=== PATIENT | female | born 1995 | race Caucasian/White ===

== ENCOUNTER 2018-12-22 06:51 | Emergency (ER) | payer OTHER ==
--- NOTE | 2018-12-22 07:13 | ER Report ---
History and Physical Time Seen By MD: 07:06 Hx. of Stated Complaint: onset nausea vomiting diarrhea yesterday HPI/ROS CHIEF COMPLAINT: Nausea vomiting and diarrhea HISTORY OF PRESENT ILLNESS: Patient is a 23-year-old female who states that she began having nausea vomiting and diarrhea sometime last evening soon after ea ting at [employer] in [facility]. She states she had a hamburger that was medium rare. No one else at the restaurant that she was dining with is ill. She denies any ill contacts. She denies any significant past medical history. She denies history of antibiotic use or recent travel. REVIEW OF SYSTEMS: Constitutional: No fever, no chills. Eyes: No discharge. ENT: No sore throat. Cardiovascular: No chest pain, no palpitations. Respiratory: No cough, no shortness of breath. Gastrointestinal: Crampy abdominal pain, nausea vomiting and watery diarrhea Genitourinary: No hematuria. Musculoskeletal: No back pain. Skin: No rashes. Neurological: No headache. Allergies: Coded Allergies: No Known Drug Allergies (Unverified , 12/22/16) Home Meds Active Scripts Loperamide HCl (Imodium A-D) 2 Mg Capsule, 1 CAP PO Q4H for diarrhea, #12 CAP 0 Refills Prov:KAMERON SIMMONS MD 12/22/18 Ondansetron Hcl (ZOFRAN) 4 Mg Tablet, 4 MG PO Q8H for Nausea, #15 TAB 0 Refills Prov:KAMERON SIMMONS MD 12/22/18 Past Medical/Surgical History No significant PMHx Hx Substance Use Disorder: No Constitutional Vital Sign - Last 24 Hours 12/22/18 06:58 Temp 98.1 Pulse 97 Resp 14 B/P (MAP) 110/80 Pulse Ox 94 O2 Delivery Room Air Physical Exam General Appearance: The patient is alert, has no immediate need for airway protection and no signs of toxicity. Eyes: Pupils equal and round no pallor or injection. ENT, Mouth: Mucous membranes are dry Respiratory: There are no retractions, lungs are clear to auscultation. Cardiovascular: Regular rate and rhythm. Gastrointestinal: Abdomen is soft and non tender, no masses, bowel sounds normal. Neurological: awake and alert Skin: Warm and dry, no rashes. Musculoskeletal: Neck is supple non tender. Extremities are nontender, nonswollen and have full range of motion. Medical Decision Making Data Points Result Diagram: 12/22/18 0734 12/22/18 0734 Laboratory Hematology Test 12/22/18 07:34 Red Blood Count 4.82 M/uL (4.17-5.56) Mean Corpuscular Volume 84.9 fL (80.0-96.0) Mean Corpuscular Hemoglobin 28.5 pg (26.0-33.0) Mean Corpuscular Hemoglobin Concent 33.6 g/dL (32.0-36.0) Red Cell Distribution Width 13.5 % (11.5-14.5) Mean Platelet Volume 7.6 fL (7.2-11.1) Neutrophils (%) (Auto) 44.2 % (39.4-72.5) Lymphocytes (%) (Auto) 43.6 % (17.6-49.6) Monocytes (%) (Auto) 8.0 % (4.1-12.4) Eosinophils (%) (Auto) 3.6 % (0.4-6.7) Basophils (%) (Auto) 0.6 % (0.3-1.4) Nucleated RBC Relative Count (auto) 0.0 /100WBC Neutrophils # (Auto) 3.2 K/uL (2.0-7.4) Lymphocytes # (Auto) 3.2 K/uL (1.3-3.6) Monocytes # (Auto) 0.6 K/uL (0.3-1.0) Eosinophils # (Auto) 0.3 K/uL (0.0-0.5) Basophils # (Auto) 0.0 K/uL (0.0-0.1) Nucleated RBC Absolute Count (auto) 0.00 K/uL Sodium Level 139 mmol/L (137-145) Potassium Level 3.6 mmol/L (3.5-5.0) Chloride Level 105 mmol/L (98-107) Carbon Dioxide Level 25 mmol/L (22-31) Blood Urea Nitrogen 11 mg/dl (7-18) Creatinine 0.60 mg/dl (0.52-1.04) Glomerular Filtration Rate Calc > 60.0 Random Glucose 92 mg/dl (75-110) Calcium Level 9.3 mg/dl (8.4-10.2) Total Bilirubin 0.2 mg/dl (0.2-1.3) Aspartate Amino Transf (AST/SGOT) 28 U/L (0-35) Alanine Aminotransferase (ALT/SGPT) 27 U/L (0-56) Alkaline Phosphatase 59 U/L (0-126) Total Protein 7.5 g/dl (6.3-8.2) Albumin 4.4 g/dl (3.5-5.0) Lipase 51 U/L (23-300) Chemistry Test 12/22/18 07:34 White Blood Count 7.3 k/uL (4.5-11.0) Red Blood Count 4.82 M/uL (4.17-5.56) Hemoglobin 13.7 g/dL (12.0-16.0) Hematocrit 40.9 % (34.0-47.0) Mean Corpuscular Volume 84.9 fL (80.0-96.0) Mean Corpuscular Hemoglobin 28.5 pg (26.0-33.0) Mean Corpuscular Hemoglobin Concent 33.6 g/dL (32.0-36.0) Red Cell Distribution Width 13.5 % (11.5-14.5) Platelet Count 385 K/uL (150-450) Mean Platelet Volume 7.6 fL (7.2-11.1) Neutrophils (%) (Auto) 44.2 % (39.4-72.5) Lymphocytes (%) (Auto) 43.6 % (17.6-49.6) Monocytes (%) (Auto) 8.0 % (4.1-12.4) Eosinophils (%) (Auto) 3.6 % (0.4-6.7) Basophils (%) (Auto) 0.6 % (0.3-1.4) Nucleated RBC Relative Count (auto) 0.0 /100WBC Neutrophils # (Auto) 3.2 K/uL (2.0-7.4) Lymphocytes # (Auto) 3.2 K/uL (1.3-3.6) Monocytes # (Auto) 0.6 K/uL (0.3-1.0) Eosinophils # (Auto) 0.3 K/uL (0.0-0.5) Basophils # (Auto) 0.0 K/uL (0.0-0.1) Nucleated RBC Absolute Count (auto) 0.00 K/uL Glomerular Filtration Rate Calc > 60.0 Calcium Level 9.3 mg/dl (8.4-10.2) Total Bilirubin 0.2 mg/dl (0.2-1.3) Aspartate Amino Transf (AST/SGOT) 28 U/L (0-35) Alanine Aminotransferase (ALT/SGPT) 27 U/L (0-56) Alkaline Phosphatase 59 U/L (0-126) Total Protein 7.5 g/dl (6.3-8.2) Albumin 4.4 g/dl (3.5-5.0) Lipase 51 U/L (23-300) ED Course/Re-evaluation ED Course 12/22/2018 7:13:05 am plan at this time will be IV hydration, CBC CMP lipase urine test and urinalysis. We'll give IV Zofran. 12/22/2018 8:01:52 am patient feeling improved has approximately 400 mL of IV fluids remaining. Blood work is unremarkable; awaiting a urinalysis. Decision to Disposition Date: Dec 22, 2018 Decision to Disposition Time: 08:18 Depart Departure Latest Vital Signs Vital Signs Date Time Temp Pulse Resp B/P (MAP) Pulse Ox O2 Delivery O2 Flow Rate FiO2 12/22/18 06:58 98.1 97 14 110/80 94 Room Air Impression: Primary Impression: Vomiting and diarrhea Condition: Improved Disposition: HOME OR SELF-CARE New Scripts Loperamide HCl (Imodium A-D) 2 Mg Capsule 1 CAP PO Q4H for diarrhea, #12 CAP 0 Refills Prov: KAMERON SIMMONS MD 12/22/18 Ondansetron Hcl (ZOFRAN) 4 Mg Tablet 4 MG PO Q8H for Nausea, #15 TAB 0 Refills Prov: KAMERON SIMMONS MD 12/22/18 Departure Forms: ER Transition Record, Medications Reconciliation, Off Work/School Form, School or Work Release?: School Number of days to be released: 2 Patient Portal Information Patient Instructions: Acute Diarrhea (ED), Acute Nausea and Vomiting (GEN) KAMERON SIMMONS MD Dec 22, 2018 07:13
[2018-12-22] MEDS ORDERED: ONDANSETRON 4 MG/2 ML VIAL IVP ONE (07:15)
[2018-12-22] MEDS ORDERED: NS(*) 0.9% 1000 ML BAG 1,000 ML IV ONE (07:15)
[2018-12-22 07:42] LABS: PLATELET COUNT, AUTOMATED 385 K/uL (150-450)
[2018-12-22 08:00] VITALS: BP 111/80
[2018-12-22] MEDS ORDERED: ONDA4TAB97 PO (08:10)
[2018-12-22] MEDS ORDERED: LOPE2CAP15 PO (08:10)
== END 2018-12-22 08:26 | disposition home or self-care (01) ==
LOC: ER 07:07
DX: R11.2 Nausea with vomiting, unspecified (principal)
CPT/HCPCS: 83690; 85025; 96361; 96374; 99284; J2405; J7030; 82040; 82247; 82310; 82374; 82435; 82565; 82947; 84075; 84132; 84155; 84295; 84450; 84460; 84520

== ENCOUNTER 2019-01-23 00:31 | Emergency (ER) | payer OTHER ==
[~2019-01-23 00:31] MED LIST: LOPE2CAP15 PO; ONDA4TAB97 PO
[2019-01-23 00:34] VITALS: BP 110/71
--- NOTE | 2019-01-23 00:51 | ER Report ---
History and Physical Time Seen By MD: 00:34 HPI/ROS CHIEF COMPLAINT: Ring finger swelling HISTORY OF PRESENT ILLNESS: 24-year-old female complaining of right finger swelling. She has a ring on it that constricting the base of the finger. She's had the ring since she was age 15. He recalls no trauma or signs of infection. Allergies: Coded Allergies: No Known Drug Allergies (Unverified , 12/22/16) Home Meds Active Scripts Loperamide HCl (Imodium A-D) 2 Mg Capsule, 1 CAP PO Q4H for diarrhea, #12 CAP 0 Refills Prov:KAMERON SIMMONS MD 12/22/18 Ondansetron Hcl (ZOFRAN) 4 Mg Tablet, 4 MG PO Q8H for Nausea, #15 TAB 0 Refills Prov:KAMERON SIMMONS MD 12/22/18 Reviewed Nurses Notes: Yes Old Medical Records Reviewed: Yes Hx Substance Use Disorder: No Constitutional Vital Sign - Last 24 Hours 01/23/19 00:34 Temp 98.7 Pulse 88 Resp 16 B/P (MAP) 110/71 Pulse Ox 94 O2 Delivery Room Air Physical Exam General appearance: Alert no distress. Respiratory: Chest is non tender, lungs are clear to auscultation. Cardiac: Regular rate and rhythm Extremities: Examination of the right hand reveals a ring at the base of the ring finger. There is gross distal swelling of the entire finger. Patient's having significant pain. She's had the ring for 13 years. She does recalls no trauma to the finger. DIFFERENTIAL DIAGNOSIS: After history and physical exam differential diagnosis was considered for finger strangulation by ring, Medical Decision Making ED Course/Re-evaluation ED Course Patient was minute to an examination room. H&P was done. The differential diagnoses was considered. A ring cutter was used to cut the back portion of the ring. It was spread open with hemostats and then removed without difficulty. Patient's advised to keep her finger elevated, apply ice packs and take ibuprofen as needed for pain relief. She was given a note to be off school today. Decision to Disposition Date: January 23, 2019 Decision to Disposition Time: 00:45 Depart Departure Latest Vital Signs Vital Signs Date Time Temp Pulse Resp B/P (MAP) Pulse Ox O2 Delivery O2 Flow Rate FiO2 01/23/19 00:34 98.7 88 16 110/71 94 Room Air Impression: Primary Impression: Localized swelling of finger of right hand Condition: Improved Disposition: HOME OR SELF-CARE Referrals: GERALD AJ MD, FARRUKH MD Patient Instructions: GENERAL ER DISCHARGE INSTRUCTIONS Additional Instructions: Elevate your finger, apply ice packs Take ibuprofen Follow-up with primary care if unimproved in 3-5 days JENNY DAVIS DO January 23, 2019 00:51
== END 2019-01-23 00:58 | disposition home or self-care (01) ==
LOC: ER 00:49
DX: M79.89 Other specified soft tissue disorders (principal)
CPT/HCPCS: 99282